=== PATIENT | male | born 1980 | race Caucasian/White ===

== ENCOUNTER 2017-11-29 21:57 | Inpatient (IN) | payer BC ==
[~2017-11-29] VITALS: Ht 190.5 cm; Wt 89.0 kg
[2017-11-29] MEDS ORDERED: BUPR-96 PO (22:32)
[2017-11-29] MEDS ORDERED: PARO25TA16 PO (22:32)
--- NOTE | 2017-11-29 23:02 | NUR ---
DR ANGELINA ALVARADO MD AT BEDSIDE FOR MSE.
[2017-11-29] MEDS ORDERED: IV NS 1000 ML 1,000 ML IV ONE ×2 (23:15)
[2017-11-29 23:19] LABS: BASOPHILS # (AUTO) 0.1 K/uL (0.0-8.0); BASOPHILS % (AUTO) 0.6 % (0.0-2.0); EOSINOPHILS # (AUTO) 0.1 K/uL (0.0-0.7); HEMATOCRIT 38.9 % (36.7-47.1); HEMOGLOBIN 13.2 g/dL (12.5-16.3); LYMPHOCYTES # (AUTO) 1.9 K/uL (20.0-40.0); LYMPHOCYTES % (AUTO) 19.1 % (20.5-51.5); MEAN CORPUSCULAR HEMOGLOBIN 29.6 uug (23.8-33.4); MEAN CORPUSCULAR HGB CONC 34 g/dL (32.5-36.3); MEAN CORPUSCULAR VOLUME 87.1 fL (73.0-96.2); MONOCYTES # (AUTO) 1.1 K/uL (2.0-10.0); MONOCYTES % (AUTO) 10.5 % (0.0-11.0); NEUTROPHILS # (AUTO) 6.9 K/uL (1.8-8.9); NEUTROPHILS % (AUTO) 68.8 % (38.5-71.5); PLATELET COUNT (AUTO) 190 K/uL (152-348); RED BLOOD CELL COUNT(AUTO) 4.47 MIL/uL (4.06-5.63)
--- NOTE | 2017-11-29 23:24 | NUR ---
PT TAKEN TO RADIOLOGY VIA GURNEY. NO ACUTE DISTRESS NOTED.
[2017-11-29 23:28] LABS: CREATININE 1.1 mg/dL (0.6-1.3); POTASSIUM 3.2 mmol/L (3.5-5.1)
--- NOTE | 2017-11-29 23:43 | NUR ---
PT BACK IN ROOM FROM RADIOLOGY. NO ACUTE EVENTS.
[2017-11-29 23:44] LABS: BILIRUBIN,TOTAL 0.3 mg/dL (0.2-1.0); TOTAL PROTEIN, SERUM 6.4 g/dL (6.4-8.2)
--- NOTE | 2017-11-30 00:59 | NUR ---
PT RESING IN BED W/ EYES CLOSED. BREATHING EVEN AND UNLABORED. NO DISTRESS NOTED.
--- NOTE | 2017-11-30 01:46 | NUR ---
PT STATES HE IS UNABLE TO PROVIDE URINE SAMPLE AT THIS TIME.
[2017-11-30] MEDS ORDERED: POTASSIUM CHLORIDE 20 MEQ TAB.PRT.SR PO ONE (02:00)
[2017-11-30] MEDS ORDERED: IV NS 1000 ML 1,000 ML IV PRN (02:00)
--- NOTE | 2017-11-30 02:00 | NUR ---
EPIC PAGED FOR PANEL REGARDING PT ADMISSION.
[2017-11-30] MEDS ORDERED: BUPR150T5 PO (02:05)
[2017-11-30] MEDS ORDERED: PARO25TA16 PO (02:05)
[2017-11-30] MEDS ORDERED: ONDANSETRON 4 MG/2 ML VIAL IV PRN (02:15)
[2017-11-30] MEDS ORDERED: MAGNESIUM HYDROXIDE 30 ML LIQUID UDC PO PRN (02:15)
[2017-11-30] MEDS ORDERED: ACETAMINOPHEN 325 MG TABLET PO PRN (02:15)
[2017-11-30] MEDS ORDERED: Z GUARD REMEDY PASTE 57 GM TUBE TOP PRN (02:15)
--- NOTE | 2017-11-30 02:15 | NUR ---
REPORT GIVEN TO RONNIE ST.
--- NOTE | 2017-11-30 02:50 | NUR ---
PT USING URINAL INDEPENDENTLY. URINE SENT TO LAB.
--- NOTE | 2017-11-30 02:55 | NUR ---
Pt. admitted to TELE, under care of Dr. COKER Belongs List completed
[2017-11-30 02:58] LABS: *BILIRUBIN,URIN NEGATIVE (NEGATIVE); *BLOOD, URINE NEGATIVE (NEGATIVE); *CLARITY,URINE CLEAR (CLEAR); *COLOR,URINE YELLOW (YELLOW); *KETONES,URINE NEGATIVE (NEGATIVE); *PROTEIN,URINE NEGATIVE (NEGATIVE); *UROBILINOGEN,URINE 0.2 E.U./dl (NORMAL); LEUKOCYTE ESTERASE ,URINE NEGATIVE (NEGATIVE); NITRITE, URINE NEGATIVE (NEGATIVE); UGLUCOSE NEGATIVE (NEGATIVE)
--- NOTE | 2017-11-30 03:00 | NUR ---
ADMITTED THIS 37 Y.O. MALE FROM ER,IN NO APPARENT DISTRESS,ACCOMPANIED BY ER NURSE,KEPT WARM AND COMFORTABLE.
--- NOTE | 2017-11-30 03:00 | NUR ---
IV SITE PATENT ON AND INTACT ON RIGHT FA,IVF INFUSING FAIRLY WELL.ON TELE,UNDER DR. Luke COKER.
--- NOTE | 2017-11-30 03:15 | NUR ---
PATIENT ARRIVED FROM ER AT 0300. PATIENT IS A 37 YEARS OLD MALE WITH DIAGNOSIS OF ACUTE ENCEPHALOPATHY, RECEIVED PATIENT AAOX3. ABLE TO ANSWER QUESTIONS DURING ADMISSION PROCESS. NO NO ACUTE DISTRESS. REPORTED MILD PAIN ON HIS HEAD AND LOWER ABDOMINAL AREA BUT TOLERABLE. NSR ON TELE AT 93/MIN. IV SITE ON RIGHT FOREARM INTACT AND PATENT. IV BOLUS FROM ER STILL INFUSING. ROUTINE ADMISSION CARE DONE. PLAN OF CARE INITIATED. SAFETY MEASURE INITIATED AND CALL [facility] WITHIN REACH.
[2017-11-30 03:20] VITALS: BP 138/89
[2017-11-30 03:49] LABS: BACTERIA,URINE NONE SEEN /HPF (NONE SEEN); RBC,URINE 0-3 /HPF (0-3); SQUAMOUS EPITHELIAL CELL,UR FEW /HPF (NONE SEEN)
[2017-11-30 03:55] LABS: *AMPHETAMINE, URINE POSITIVE (NEGATIVE); *BARBITURATE, URINE NEGATIVE (NEGATIVE); *CANNABINOID, URINE POSITIVE (NEGATIVE); *COCCAINE, URINE NEGATIVE (NEGATIVE); *OPIATE, URINE NEGATIVE (NEGATIVE); *PHENCYCLIDINE SCREEN,URINE NEGATIVE (NEGATIVE)
[2017-11-30 04:00] VITALS: BP 119/82
[2017-11-30] MEDS: IV NS 1000 ML 1,000 ML IV SCH ×2 (04:17→11:24)
--- NOTE | 2017-11-30 06:02 | NUR ---
AAOX3. IN NO ACUTE DISTRESS. NSR ON TELE AT 95/MIN. VS WNL. BUMP ON LEFT SIDE OF FOREHEAD STILL VISIBLE. SKIN INTACT. IV SITE ON RIGHT FOREARM INTACT AND PATENT. IVF INFUSING. ON NPO STATUS. SAFETY MEASURE INITIATED AND CALL [facility] WITHIN REACH.
[2017-11-30 11:20] VITALS: BP 142/71
--- NOTE | 2017-11-30 13:15 | NUR ---
Pt left the floor for discharge back home with Gem (significant other) . Discharge instructions provided and discussed with the pt. Pt verbalized understanding of discharge instructions. Belonging sheet reviewed and signed. PIV removed. Pt stable and nad noted upon discharge.
== END 2017-11-30 13:15 | disposition home or self-care (01) | DRG 917 ==
LOC: ER 21:58 → TELE 11-30 02:47
PROVIDERS: ADMIT Family Medicine; ATTEND Internal Medicine
DX: T43.621A Poisoning by amphetamines, accidental (unintentional), initial encounter (principal); G92 Toxic encephalopathy; Y92.019 Unspecified place in single-family (private) house as the place of occurrence of the external cause; F15.10 Other stimulant abuse, uncomplicated; F12.10 Cannabis abuse, uncomplicated; E87.6 Hypokalemia; Z87.891 Personal history of nicotine dependence
CPT/HCPCS: 36415; 70030-TC; 70450; 71045; 80307; 83690; 85025; 93005; A4663; J7030